=== PATIENT | female | born 1980 | race African-American/Black ===

== ENCOUNTER 2018-08-21 16:51 | Emergency (ER) | payer OTHER, SELFPAY | END 2018-08-21 17:24 | disposition home or self-care (01) | LOC: SCSER 16:51 | DX: J01.90 Acute sinusitis, unspecified (principal); F17.210 Nicotine dependence, cigarettes, uncomplicated; I10 Essential (primary) hypertension; E11.9 Type 2 diabetes mellitus without complications; Z79.84 Long term (current) use of oral hypoglycemic drugs; Z79.899 Other long term (current) drug therapy | CPT/HCPCS: 99283 ==